=== PATIENT | male | born 1960 | race Caucasian/White ===

== ENCOUNTER 2023-04-20 10:30 | Outpatient (RCR) | payer BC, SELFPAY ==
--- NOTE | 2023-03-22 10:03 | REH.OT ---
Pt was scheduled for OT evaluation today, he did not show for scheduled visit.
--- NOTE | 2023-03-30 17:53 | REH.OT ---
Left message with surgeon's nurse regarding restrictions / precautions. Received call back from [facility] who identified her as a nurse stating that ther are no mobility restrictions at any of the joints.
== END 2023-08-18 23:59 | disposition home or self-care (01) ==
PROVIDERS: PCP Family Medicine; Visit Provider Orthopaedic Surgery Hand Surgery
DX: Z98.890 Other specified postprocedural states (principal); Z51.89 Encounter for other specified aftercare
CPT/HCPCS: 97110; 97140; 97165; X5282

== ENCOUNTER 2023-07-21 13:30 | Outpatient (RCR) | payer BC, SELFPAY | END 2023-09-08 08:54 | disposition home or self-care (01) | PROVIDERS: PCP Family Medicine; Visit Provider Physician Assistant Surgical | DX: M15.2 Bouchard's nodes (with arthropathy) (principal); Z51.89 Encounter for other specified aftercare | CPT/HCPCS: 97110; 97140; 97165; L3933; X5282 ==

== ENCOUNTER 2023-08-06 13:51 | Emergency (ER) | payer BC, SELFPAY ==
[2023-08-06 13:58] VITALS: BP 173/108; PULSE 120; RESP 18; TEMP 37.4; O2SAT 96; BMI 31.2
--- NOTE | 2023-08-06 14:26 | ED.WOUNDLAC ---
HPI - Wound/Laceration General Chief Complaint: Laceration/Wound Stated Complaint: Fell last night, head lac Time Seen by Provider: 08/06/23 13:56 History of Present Illness HPI narrative: This 62-year-old male comes in with a laceration to left side of his forehead that occurred about 11 hours prior to arrival. In the middle of the night he was up to the bathroom and fell hitting his head against the bathtub. He was uncertain whether he had loss of consciousness. His significant other came soon thereafter and states that he was arousable and was able to get up and ambulate. She states that she cleaned the wound and woke him up every hour as he slept the rest of the night in order to evaluate for any neurologic deficit. The patient states that he does not have a headache. He is not on any anticoagulants. He states that his tetanus status is up-to-date. He has a 6 cm linear laceration on the left side of his head just in front of his hairline overlying the temporal region. Related Data Home Medications ?Medication ?Instructions ?Recorded ?Confirmed amlodipine 5 mg tablet 5 mg PO DAILY 08/06/23 08/06/23 lisinopril 08/06/23 metformin 500 mg tablet 500 mg PO BID 08/06/23 08/06/23 Allergies Allergy/AdvReac Type Severity Reaction Status Date / Time No Known Drug Allergies Allergy Verified 08/06/23 14:03 Review of Systems Status of ROS: Reports: 10 or more systems reviewed and unremarkable except as noted in History and below Narrative: Constitutional: No fevers, no weight gain or loss. Eyes: No discharge. No vision changes. HENT: No congestion, no sore throat, no ear pain. Cardiovascular: No chest pain, no palpitations. Respiratory: No shortness of breath, no wheezes, no cough. Gastrointestinal: No abdominal pain, no vomiting, no diarrhea. Genitourinary: No dysuria, no hematuria. Musculoskeletal: Normal range of motion. Skin: No rashes, no pruritis. Neurological: No dizziness, weakness, sensory change, speech change. Endo/Heme/Allergies: No bruising or bleeding. No polydipsia. Pysch: no suicidality, no anxiety, no insomnia. All other systems reviewed and are negative. PFSH PFSH Social History Smoking Status: Current every day smoker How often do you have a drink containing alcohol: 2-3 times a week AUDIT-C Alcohol total score: 3 Non-prescribed substance use: marijuana (any form) Exam Narrative: Exam Narrative: Constitutional: Well-developed, well-nourished, no acute distress. HEENT: 6 cm linear laceration on the left side of the head. No active bleeding. Neck: Normal range of motion. Nontender. Supple. Heart: Intact distal pulses. Lungs: No chest discomfort. No wheezes, rhonchi, or rales. Abdomen: Nontender. Back: Normal range of motion. Extremities: Normal range of motion. No injury. Skin: Intact. No rash. Warm. No erythema or pallor. Neurologic: No altered sensation. No weakness. Alert and oriented. Psychiatric: No suicidality. No anxiety or depression. No insomnia. Nursing notes and vitals signs are reviewed. Const: Vital Signs, click to edit/add: Vital Signs - 24 hr 08/06/23 13:58 Temperature 99.3 F Pulse Rate [Pulse Oximeter] 120 H Respiratory Rate 18 Blood Pressure [Ri ght Upper Arm] 173/108 H Pulse Oximetry 96 Oxygen Delivery Me thod Room Air Course Vital Signs Vital signs: Initial Vital Signs Temperature 99.3 F 08/06/23 13:58 Temperature Source Temporal Artery Scan 08/06/23 13:58 Pulse Rate 120 H 08/06/23 13:58 Respiratory Rate 18 08/06/23 13:58 Blood Pressure 173/108 H 08/06/23 13:58 Blood Pressure Mean 129 H 08/06/23 13:58 Blood Pressure Position Supine 08/06/23 13:58 Pulse Oximetry 96 08/06/23 13:58 Oxygen Delivery Method Room Air 08/06/23 13:58 Vital Signs Temperature 99.3 F 08/06/23 13:58 Pulse Rate 120 H 08/06/23 13:58 Respiratory Rate 18 08/06/23 13:58 Blood Pressure 173/108 H 08/06/23 13:58 Pulse Oximetry 96 08/06/23 13:58 Oxygen Delivery Method Room Air 08/06/23 13:58 Temperature 99.3 F 08/06/23 13:58 Pulse Rate 120 H 08/06/23 13:58 Respiratory Rate 18 08/06/23 13:58 Blood Pressure 173/108 H 08/06/23 13:58 Pulse Oximetry 96 08/06/23 13:58 Oxygen Delivery Method Room Air 08/06/23 13:58 MDM - Wound/Laceration MDM Narrative Medical decision making narrative: This patient comes in with a laceration left side of his hat. He is not showing any sign of discomfort or neurologic deficit. He is not on any anticoagulants. Now that it is almost 12 hours after the injury event a discussed the role of CT imaging but indicated reassurance is with his exam and so in a process of shared decision making this was declined. After anesthesia with 1% lidocaine with epinephrine the wound was cleansed and explored to its base. 7 sutures were placed in interrupted fashion using 4.0 Prolene that is blue in color. The wound edges are nicely approximated. Instructions regarding wound care were given along with the need to return to clinic or urgent care in 7-10 days for suture removal. Discharge Plan Discharge Clinical Impression: Laceration Patient Disposition: Home, Self-Care Condition: Stable Additional Instructions: Keep wound clean and dry. Follow-up with urgent care clinic in 5-7 days for suture removal. Return if worsening. Prescriptions: No Action metformin 500 mg tablet 500 mg PO BID amlodipine 5 mg tablet 5 mg PO DAILY lisinopril Follow Up/Referrals: Jonas Hill MD [Primary Care Provider] - Stand Alone Forms: [employer] Info Instructions
[2023-08-06 15:00] VITALS: BP 168/100; PULSE 110; RESP 18; O2SAT 98
== END 2023-08-06 15:03 | disposition home or self-care (01) ==
PROVIDERS: Emergency Provider Emergency Medicine Emergency Medical Services; PCP Family Medicine
DX: S01.81XA Laceration without foreign body of other part of head, initial encounter (principal)
CPT/HCPCS: 12014; 99283; 99284

== ENCOUNTER 2024-02-04 11:00 | Emergency (ER) | payer BC, SELFPAY ==
[2024-02-04 11:07] VITALS: BP 150/93; PULSE 107; RESP 20; TEMP 35.2; O2SAT 96; BMI 29.6
--- NOTE | 2024-02-04 11:19 | CRLHL7_ITS ---
For Patients: As a result of the Cures Act, medical imaging exams and procedure reports are released immediately into your electronic medical record. You may view this report before your referring provider. If you have questions, please contact your health care provider. INDICATION: Fall TECHNIQUE: Fracture three views right hand FINDINGS/IMPRESSION: Comminuted intra-articular distal radius minimally angulated. Dictated by Bre Tinsley MD @ 02/04/2024 12:17:37 PM (Electronically Signed)
--- NOTE | 2024-02-04 11:20 | ED_ITS ---
[facility] - General Adult General Date Seen: 02/04/24 Chief complaint: Extremity Pain/Injury, Upper Stated complaint: thinks he broke right wrist Time Seen by Provider: 02/04/24 11:02 Source: patient Mode of arrival: ambulatory Limitations: no limitations History of Present Illness HPI narrative: Patient is a 63-year-old male presenting for right wrist and hand pain. He states prior to arrival he slipped on some steps and catching himself with his right hand. Has pain swelling noted to the right hand denies any pain to the elbow or shoulder. No other injuries noted. Did take ibuprofen and Excedrin at home she states has helped with his pain. Denies any numbness. No other injuries noted. Related Data Home Medications ?Medication ?Instructions ?Recorded ?Confirmed amlodipine 5 mg tablet 5 mg PO DAILY 08/06/23 08/06/23 lisinopril 08/06/23 metformin 500 mg tablet 500 mg PO BID 08/06/23 08/06/23 Allergies Allergy/AdvReac Type Severity Reaction Status Date / Time No Known Drug Allergies Allergy Verified 02/04/24 11:06 Review of Systems Narrative: Pertinent systems reviewed and were negative unless stated in HPI PFSH PFSH Social History Smoking Status: Current every day smoker How often do you have a drink containing alcohol: 2-3 times a week AUDIT-C Alcohol total score: 3 Non-prescribed substance use: marijuana (any form) Exam Narrative: Exam Narrative: Const: Well-nourished, Well-developed, in mild distress Eyes: PERRL, no conjunctival injection, and symmetrical lids HENT: Atraumatic external nose and ears. Moist mucous membranes. CV: Radial pulses +2 bilaterally MSK: Swelling noted to right wrist and hand. Tenderness noted to the right wrist worse over the distal radius. Also some tenderness noted in the anatomical snuffbox and throughout the rest of the hand Skin: Warm, Dry. No rashes or lesions. Neuro: Normal Muscle tone, No focal neurological deficits. Psych: Awake, Alert, & Oriented x3. Appropriate mood and affect. Const: Vital Signs, click to edit/add: Vital Signs - 24 hr 02/04/24 11:07 Temperature 95.3 F L Pulse Rate [Pulse Oximeter] 107 H Respiratory Rate 20 Blood Pressure [Ri ght Upper Arm] 150/93 H Pulse Oximetry 96 Oxygen Delivery Me thod Room Air Course Vital Signs Vital signs: Initial Vital Signs Temperature 95.3 F L 02/04/24 11:07 Temperature Source Temporal Artery Scan 02/04/24 11:07 Pulse Rate 107 H 02/04/24 11:07 Pulse Rhythm Regular 02/04/24 11:07 Respiratory Rate 20 02/04/24 11:07 Blood Pressure 150/93 H 02/04/24 11:07 Blood Pressure Mean 112 H 02/04/24 11:07 Blood Pressure Position High-Fowlers 02/04/24 11:07 Pulse Oximetry 96 02/04/24 11:07 Oxygen Delivery Method Room Air 02/04/24 11:07 Vital Signs Temperature 95.3 F L 02/04/24 11:07 Pulse Rate 107 H 02/04/24 11:07 Respiratory Rate 20 02/04/24 11:07 Blood Pressure 150/93 H 02/04/24 11:07 Pulse Oximetry 96 02/04/24 11:07 Oxygen Delivery Method Room Air 02/04/24 11:07 Temperature 95.3 F L 02/04/24 11:07 Pulse Rate 107 H 02/04/24 11:07 Respiratory Rate 20 02/04/24 11:07 Blood Pressure 150/93 H 02/04/24 11:07 Pulse Oximetry 96 02/04/24 11:07 Oxygen Delivery Method Room Air 02/04/24 11:07 Medical Decision Making MDM Narrative Medical decision making narrative: Patient is a 63-year-old male presenting for right wrist pain. No other injuries noted. No tenderness noted to the rest of his extremities. Will do an x-ray of his right wrist and hand. Will open up hand x-ray further that we can do wrist and hand x-ray and 1 set of images. Not requesting any pain medication at this time. is neurovascular intact. X-ray does show distal radial fracture. Placed in a right short arm volar splint. Will be discharged with orthopedic follow-up. He is agreeable to this plan. Imaging Data Right hand x-ray: Attestation: I have reviewed the pertinent imaging results. Radiologist's impression: Comminuted intra-articular distal radius minimally angulated. Dictated by Bre Tinsley MD @ 02/04/2024 12:17:37 PM Discharge Plan Discharge Clinical Impression: Fracture of wrist Qualifiers: Encounter type: initial encounter Fracture type: closed Laterality: right Qualified Code(s): S62.101A - Fracture of unspecified carpal bone, right wrist, initial encounter for closed fracture Patient Disposition: Home, Self-Care Condition: Stable Instructions: Wrist Fracture in Adults (ED) Additional Instructions: Take Tylenol and ibuprofen for pain. Follow-up with [facility]. Call them at Prescriptions: No Action metformin 500 mg tablet 500 mg PO BID amlodipine 5 mg tablet 5 mg PO DAILY lisinopril Follow Up/Referrals: Jonas Hill MD [Primary Care Provider] - Stand Alone Forms: [employer] Info Instructions
== END 2024-02-04 12:37 | disposition home or self-care (01) ==
PROVIDERS: Emergency Provider Student in an Organized Health Care Education/Training Program; PCP Family Medicine
DX: S52.121A Displaced fracture of head of right radius, initial encounter for closed fracture (principal); W10.9XXA Fall (on) (from) unspecified stairs and steps, initial encounter
CPT/HCPCS: 29125; 73130; 99283; 99284

== ENCOUNTER 2024-02-13 06:08 | Day surgery (SDC) | payer BC, SELFPAY ==
[2024-02-13] VITALS (8 sets, daily range): BP systolic 121–145; BP diastolic 76–97; PULSE 78–92; RESP 16; TEMP 36.1–36.4; O2SAT 91–98; BMI 31.4
[2024-02-13] MEDS: SODIUM CHLORIDE 0.9 % (FLUSH) 10 ML SYRINGE IVF (06:54)
--- NOTE | 2024-02-13 06:55 | SUR.PREOP ---
TIME?OUT:?709 PT/RN/MDA?VERIFICATION?OF?SURGICAL?SITE Right Wrist,?PROCEDURE Nerve Block,?AND?CONSENT OBTAINED?PRIOR?TO?INVASIVE?PROCEDURE.
[2024-02-13] MEDS: fentaNYL 100 MCG/2 ML inj IVP (07:10)
[2024-02-13] MEDS: MIDAZOLAM HCL 1 MG/ML inj IVP (07:10)
--- NOTE | 2024-02-13 07:15 | CRLHL7_ITS ---
For Patients: As a result of the Cures Act, medical imaging exams and procedure reports are released immediately into your electronic medical record. You may view this report before your referring provider. If you have questions, please contact your health care provider. Indication: RT WRIST FX ORIF Technique: Four fluoroscopic images of the right wrist. Fluoroscopic time 85.3 seconds. IMPRESSION: Fluoroscopic guidance for open reduction internal fixation distal radial fracture. Dictated by Sarmad Schafer MD @ 02/13/2024 12:20:29 PM (Electronically Signed)
[2024-02-13] MEDS: CEFAZOLIN 2 GM INJ IVP (07:30)
--- NOTE | 2024-02-13 08:16 | W.ANESCHARGE ---
Anesthesia Charges Start Date/Time Anesthesia Start Date: 02/13/24 Anesthesia Start Time: 07:19 Stop Date/Time Anesthesia Stop Date: 02/13/24 Anesthesia Stop Time: 09:12
--- NOTE | 2024-02-13 08:52 | PM.ORPRC ---
Procedure Note Date of procedure: 02/13/24 Procedure: PREOPERATIVE DIAGNOSIS: Angulated 3+ part intra-articular right upper extremity distal radius fracture POSTOPERATIVE DIAGNOSIS: Angulated 3+ part intra-articular right upper extremity distal radius fracture NAME OF OPERATION: Open reduction internal fixation SURGEON: Malcom Toney MD [facility] PROTOTYPE: Yuko Baird PA-C ANESTHESIA: Supraclavicular block plus monitored anesthesia care ESTIMATED BLOOD LOSS: 0 mL COMPLICATIONS: None SPECIMENS: None DRAINS: None PREOPERATIVE ANTIBIOTICS: Ancef 2 grams INDICATIONS: The patient is a 63-year-old who fell landing on their upper extremity sustaining the above injury. Given the amount of angulation, reduction and plate fixation were recommended. The risks, benefits and expected outcomes were discussed in detail. These included but were not limited to: Infection, bleeding, injury to blood vessel or nerve, venous thromboembolism. All questions were answered to their satisfaction. Use of an business support assistant was necessary throughout the case for patient positioning and safety, maintenance of the reduction, surgical site dressing and splint application. PROCEDURE: A supraclavicular block was placed by Anesthesia. The patient was placed supine on the operating room table. IV sedation was administered. The reduction was obtained with longitudinal traction and volar force on the distal fragment, held by the business support assistant. The image intensifier was used to confirm an excellent reduction. The extremity was prepped and draped in the usual sterile fashion. The limb was exsanguinated with the Mic bandage. The pneumatic tourniquet was inflated to 250 mm of mercury. A longitudinal incision was made over the flexor carpi radialis. Subcutaneous dissection was taken sharply through the FCR sheath. The FCR was retracted radially. Sharp dissection was carried through the floor of the FCR sheath. The flexor pollicis longus was retracted ulnarly. Sharp dissection was carried through the radial border of the pronator quadratus which was elevated ulnarly, exposing the fracture site. The business support assistant held retractors to expose the fracture. The volar cortex of the fracture is anatomically aligned. We placed a Synthes wide, 3 hole volar locking plate over the volar cortex. It was provisionally held with a BB tack x 2, while the business support assistant held the reduction. Its placement was confirmed with the image intensifier. We placed a cortical screw in the slot. We placed a locking screw in the shaft. We then held the ulnar column anatomically reduced and placed 3 smooth locking pegs. We then reduced the radial column to the now well-fixed ulnar column and held it with a reduction clamp. We then placed 3 smooth locking pegs in the radial column. We used the image intensifier to confirm their extra-articular placement. Finally, a 2nd locking screw was placed in the shaft fragment. This construct was imaged in multiple views and was felt to be well placed with an excellent reduction and well placed implants. The wound was irrigated normal saline. Subcutaneous tissues were reapproximated with a 2-0 Vicryl, skin with a running 3-0 Monocryl in a subcuticular fashion. Glue was used to seal the skin. A dry dressing and short-arm dorsal volar splint was applied. These steps were all completed by the business support assistant. The tourniquet was released, sponge and needle counts were correct x2. The patient tolerated the procedure well, there were no apparent complications. They were taken to the postanesthesia care unit in satisfactory condition. PLAN: The patient will be discharged home. They will work on elevation of the hand and active range of motion of the fingers. They will follow up next week in the office for a wound check with a PA, oblique, lateral and fossa lateral view of the wrist out of the splint prior to being seen in preparation for early active motion with a Velcro wrist brace.
--- NOTE | 2024-02-13 09:31 | P.NB_ITS ---
Nerve Block Nerve Block Time Seen by Provider: 07:12 Date Seen: 02/13/24 Type of block requested by surgeon for post-operative analgesia: axillary Time out performed: Yes Verification of patient name: Yes Verification of date of : Yes Site marking: site marked Name of person performing procedure: [place] Continuous monitoring Was continuous monitoring of O2 sat, B/P, air sampling and monitoring, recorded every 15 minutes?: Yes Procedure Checklist: sterile prep, needles and gloves Ultrasound guided. Images saved: Yes Medications given in 5ml increments after negative aspiration: Ropivicaine %: 0.5 mL: 20 Needle gauge: 22 Patient tolerated procedure well: Yes Additional comments: Needle noted adjacent to nerve Block Charges Block Charge (with Pro Fee): Brachial Plexus Use of Ultrasound Machine for Block: Yes- US Guidance/pain block
--- NOTE | 2024-02-13 09:32 | W.ANESCHARGE ---
Anesthesia Charges Start Date/Time Anesthesia Start Date: 02/13/24 Anesthesia Start Time: 07:19 Stop Date/Time Anesthesia Stop Date: 02/13/24 Anesthesia Stop Time: 09:12
== END 2024-02-13 10:11 | disposition home or self-care (01) ==
LOC: OR 06:09
PROVIDERS: PCP Family Medicine; Visit Provider Orthopaedic Surgery
PROC: (CPT 25575; principal; 2024-02-13 07:15)
DX: S52.571A Other intraarticular fracture of lower end of right radius, initial encounter for closed fracture (principal); G89.18 Other acute postprocedural pain; I10 Essential (primary) hypertension; E11.9 Type 2 diabetes mellitus without complications
CPT/HCPCS: 25609; 01830; 64415; 73110; 76942; 82962; A4580; C1713; J0690; J2250; J2405; J2704; J2795; J3010

== ENCOUNTER 2024-04-16 15:00 | Outpatient (RCR) | payer BC, SELFPAY | END 2024-08-14 23:59 | disposition home or self-care (01) | PROVIDERS: PCP Family Medicine; Visit Provider Orthopaedic Surgery | DX: Z48.89 Encounter for other specified surgical aftercare (principal); S62.101D Fracture of unspecified carpal bone, right wrist, subsequent encounter for fracture with routine healing; Z51.89 Encounter for other specified aftercare | CPT/HCPCS: 97110; 97140; 97165; X5282 ==

== ENCOUNTER 2025-02-25 20:28 | Outpatient (CLI) | payer BC, SELFPAY | END 2025-02-25 20:29 | disposition home or self-care (01) | LOC: AMB 03-02 21:27 | PROVIDERS: PCP Family Medicine; Visit Provider Family Medicine | DX: F10.129 Alcohol abuse with intoxication, unspecified (principal) | CPT/HCPCS: A0998 ==